=== PATIENT | female | born 1945 | race Caucasian/White ===

== ENCOUNTER 2020-07-12 07:46 | Day surgery (SDC) | payer OTHER ==
[2020-07-10 15:16] VITALS: BMI 40.2
[2020-07-12] MEDS ORDERED: PROPOFOL 20 ML ONE (09:36)
[2020-07-12] MEDS ORDERED: MIDAZOLAM HCL 2 MG/2 ML SINGLE DOSE VIAL ONE (09:36)
[2020-07-12] MEDS ORDERED: LIDOCAINE HCL/PF 2% SDV 5ML VIAL ONE (09:36)
[2020-07-12] MEDS ORDERED: KETOROLAC TROMETHAMINE 30 MG/1 ML VIAL ONE (09:44)
[2020-07-12] MEDS ORDERED: ONDANSETRON 4 MG/2 ML VIAL ONE (09:44)
[2020-07-12] MEDS ORDERED: DEXAMETHASONE SOD PHOSPHATE 4 MG/1 ML VIAL ONE (09:44)
[2020-07-12] MEDS ORDERED: LIDOCAINE HCL 2% (50ML VIAL) INF ONE (09:50)
[2020-07-12 10:37] VITALS: TEMP 97.7
[2020-07-12 11:32] VITALS: BP 128/70; PULSE 76
== END 2020-07-12 11:32 | disposition home or self-care (01) ==
LOC: FASU 07:46
PROVIDERS: ATTEND Orthopaedic Surgery Hand Surgery
PROC: 01N50ZZ Release Median Nerve, Open Approach (ICD-10-PCS; principal; 2020-07-12 09:56)
DX: G56.01 Carpal tunnel syndrome, right upper limb (principal)
CPT/HCPCS: 82962